=== PATIENT | female | born 1950 | race Caucasian/White ===

== ENCOUNTER 2024-06-11 07:47 | Day surgery (SDC) | payer OTHER, BC ==
[2024-05-29 15:59] VITALS: BMI 22.3
[2024-06-11] MEDS ORDERED: MIDAZOLAM HCL 2 MG/2 ML SINGLE DOSE VIAL ONE (08:49)
[2024-06-11 10:40] VITALS: TEMP 98
[2024-06-11 10:54] VITALS: RESP 18
[2024-06-11 12:08] VITALS: BP 130/66; PULSE 61
== END 2024-06-11 12:07 | disposition home or self-care (01) ==
LOC: JASU-ENDO 07:47
PROVIDERS: ATTEND Internal Medicine Gastroenterology
PROC: 0DB68ZX Excision of Stomach, Via Natural or Artificial Opening Endoscopic, Diagnostic (ICD-10-PCS; 2024-06-11)
PROC: BD49ZZZ Ultrasonography of Duodenum (ICD-10-PCS; 2024-06-11)
PROC: 0DB98ZX Excision of Duodenum, Via Natural or Artificial Opening Endoscopic, Diagnostic (ICD-10-PCS; principal; 2024-06-11 09:00)
DX: K29.50 Unspecified chronic gastritis without bleeding (principal); K29.80 Duodenitis without bleeding
CPT/HCPCS: 88305-TC; 88342-TC